=== PATIENT | female | born 1950 | race Caucasian/White ===

== ENCOUNTER → 2021-07-08 | Outpatient (CLI) | payer OTHER ==
[~2021-07-08] MED LIST: ISOSORBIDE MONO30 MG PO; KLOR-CON M2020 MEQ PO; LIPITOR TAB 1010 MG PO; LOPRESSOR 25 MG25 MG PO; NITROSTAT 0.40.4 MG SL; NORVASC 5 MG TAB5 MG PO; PROTONIX 40 MG40 M1 PO; REQUIP1 MG PO; SYNTHROID75 MCG PO; VITAMIN D50000 UNIT PO
== END ==
LOC: HEART 5 07-07 08:00
DX: R07.9 Chest pain, unspecified (principal); I27.20 Pulmonary hypertension, unspecified; I08.3 Combined rheumatic disorders of mitral, aortic and tricuspid valves
CPT/HCPCS: 78452; 93306; A9502; J2785